=== PATIENT | female | born 1940 | race Caucasian/White ===

== ENCOUNTER 2018-01-05 10:32 | Emergency (ER) | payer MEDICARE ==
[2018-01-05] MEDS ORDERED: Sodium Chloride 0.9% 1000 ML 1,000 ML IV SCH (11:00)
--- NOTE | 2018-01-05 11:08 | ERPHSYRPT ---
- History of Present Illness Time Seen by Provider: 01/05/18 10:56 Source: patient Exam Limitations: no limitations Patient Subjective Stated Complaint: feeling funny and dizzy this morning. nausea with no vomiting. started at 0500 today. Triage Nursing Assessment: alert and oriented... ambulated to room. states had dizziness and nausea today. denies CP but states has had gas bubbles. abdomen soft + BSfeels like needs to have diarrhea stool but none. Physician History: 77-year-old white female arrives with complaint that she is feeling funny and dizzy today she feels like she is weak on her left side she has not had any movement problems nor is she having any speech problems. Symptoms began at 5: 00 this morning She states she woke up this way. Patient states she has occasional sharp fleeting twinges in her chest lasting seconds she is not short of breath she does state she had some nausea Past medical history includes high blood pressure Past surgical history is negative Timing/Duration: today Severity: moderate Associated Symptoms: nausea, chest pain (sharp fleeting chest pains, described as twinges, lasting seconds), weakness (feels like she is weak on her left side no movement problems), No vomiting, No abdominal pain, No shortness of breath, No heartburn, No diaphoresis, No cough, No chills, No fever, No headaches, No loss of appetite, No malaise, No rash, No syncope, No seizure Allergies/Adverse Reactions: No Known Drug Allergies Allergy (Verified 01/05/18 11:14) - Review of Systems Constitutional: Weakness, Other (feels dizzy), No Fever, No Chills, No Fatigue, No Lethargy, No Malaise, No Night Sweats Eyes: No Symptoms Ears, Nose, & Throat: No Symptoms Respiratory: No Cough, No Dyspnea Cardiac: Chest Pain (sharp fleeting chest pains described as twinges lasting seconds) Abdominal/Gastrointestinal: Nausea, No Abdominal Pain, No Vomiting, No Diarrhea , No Constipation, No Hematemesis, No Hematochezia, No Melena, No Dysphagia, No Appetite Changes Genitourinary Symptoms: No Dysuria Musculoskeletal: No Back Pain, No Neck Pain Skin: No Rash Neurological: Dizziness, Focal Weakness (feels weak on her left side), No Gait Changes, No Headache, No Irritability, No Paralysis, No Parasthesia, No Seizure , No Sensory Changes, No Speech Changes, No Tics, No Tremors, No Vertigo Psychological: No Symptoms Endocrine: No Symptoms All Other Systems: Reviewed and Negative - Past Medical History Pertinent Past Medical History: Yes Cardiac History: No Pertinent History, Hypertension - Past Surgical History Past Surgical History: No - Social History Smoking Status: Never smoker Exposure to second hand smoke: No Drug Use: none Patient Lives Alone: No - Female History Hx Now: No - Nursing Vital Signs Nursing Vital Signs: Initial Vital Signs Temperature 98.0 F 01/05/18 10:38 Pulse Rate 82 01/05/18 10:38 Respiratory Rate 18 01/05/18 10:38 Blood Pressure 145/87 01/05/18 10:38 O2 Sat by Pulse Oximetry 98 01/05/18 10:38 Pain Scale Pain Intensity 0 - Physical Exam General Appearance: no apparent distress, alert Eye Exam: PERRL/EOMI, eyes nml inspection Ears, Nose, Throat Exam: normal ENT inspection, TMs normal, pharynx normal, moist mucous membranes Neck Exam: normal inspection, non-tender, supple, full range of motion Respiratory Exam: normal breath sounds, lungs clear, No respiratory distress Cardiovascular Exam: regular rate/rhythm, normal heart sounds, normal peripheral pulses Gastrointestinal/Abdomen Exam: soft, normal bowel sounds, No tenderness, No mass Back Exam: normal inspection, normal range of motion, No CVA tenderness, No vertebral tenderness Extremity Exam: normal inspection, normal range of motion, pelvis stable Neurologic Exam: alert, oriented x 3, cooperative, 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[employer] (ex ) II-XII nml as tested, normal mood/affect, nml cerebellar function, nml station & gait, sensation nml, other (patient alert oriented x 3 cn 2-12 intact sweech normal no facial droop, normal finger to nose, medical territory manager equal 5/5 , no pronator drift, full rom all extremities, sensation intact to all extremities), No motor deficits, No facial droop, No slurred speech Skin Exam: normal color, warm, dry, No rash SpO2 Interpretation: normal (98%) SpO2: 98 Oxygen Delivery: Room Air - Course Nursing assessment & vital signs reviewed: Yes EKG Interpreted by Me: RATE (78 bpm), NORMAL AXIS, Other (EKG: Sinus rhythm, 78 bpm, normal axis, no acute ST or T wave changes noted) - Radiology Exams Chest X-ray Interpretation: Discussed w/ radiologist (chest x-ray: Impression: 1. Hyperinflation of lungs consistent with COPD 2. Mild old healed granulomatous disease 3. No acute cardiopulmonary process is seen for. Suspect minimal hiatal hernia. 5. Status post CABG surgical clips within the left upper quadrant of the abdomen.) - CT Exams Head CT Interpretation: Discussed w/radiologist (CT head without contrast: Impression : 1. No acute intracranial bleed or other acute intracranial process is seen. 2. Mild to moderate generalized cortical atrophy and chronic small vessel ischemic white matter changes are seen.) Ordered Tests: Active Orders 24 hr Category Date Time Status Accucheck STAT Care 01/05/18 11:00 Active Stoker Installation Mechanic STAT Care 01/05/18 11:02 Active EKG-ER Only STAT Care 01/05/18 11:02 Active IV Insertion STAT Care 01/05/18 11:00 Active Orthostatic Vital Signs STAT Care 01/05/18 11:00 Active CHEST 1 VIEW (PORTABLE) Stat Exams 01/05/18 11:00 Completed HEAD WITHOUT CONTRAST [CT] Stat Exams 01/05/18 11:00 Completed CBC W DIFF Stat Lab 01/05/18 11:25 Completed CMP Stat Lab 01/05/18 11:25 Completed CULTURE,URINE Stat Lab 01/05/18 11:23 Received ETHYL ALCOHOL Stat Lab 01/05/18 11:25 Completed Manual Differential NC Stat Lab 01/05/18 11:25 Completed TROPONIN Q3H Lab 01/05/18 11:25 Completed TROPONIN Q3H Lab 01/05/18 14:00 Ordered TROPONIN Q3H Lab 01/05/18 17:00 Ordered TROPONIN Q3H Lab 01/05/18 20:00 Ordered TROPONIN Q3H Lab 01/05/18 23:00 Ordered UA W/ MICROSCOPIC Stat Lab 01/05/18 11:23 Completed Medication Summary Generic Name Dose Route Start Last Admin Trade Name Freq PRN Reason Stop Dose Admin Sodium Chloride 1,000 mls @ 100 mls/hr 01/05/18 11:00 01/05/18 11:32 Sodium Chloride 0.9% 1000 Ml IV 02/04/18 10:59 100 mls/hr .Q10H HILARIA Administration Discontinued Medications Generic Name Dose Route Start Last Admin Trade Name Freq PRN Reason Stop Dose Admin Aspirin 162 mg 01/05/18 13:48 01/05/18 14:04 Baby Aspirin 81 Mg Chew PO 01/05/18 13:49 162 mg STAT ONE Administration Aspirin Confirm 01/05/18 14:02 Baby Aspirin 81 Mg Chew Administered 01/05/18 14:03 Dose 324 mg .ROUTE .STK-MED ONE Ceftriaxone Sodium/Dextrose 1 g in 50 mls @ 100 mls/hr 01/05/18 13:24 14:04 Rocephin 1 Gm-D5w 50 Ml Bag IV 01/05/18 13:53 100 ml/hr STAT STA 100 mls/hr Administration Ceftriaxone Sodium/Dextrose Confirm 01/05/18 14:02 Rocephin 1 Gm-D5w 50 Ml Bag Administered 01/05/18 14:03 Dose 1 g in 50 mls @ ud IV .STK-MED ONE Lab/Rad Data: Laboratory Result Diagrams 01/05/18 11:25 01/05/18 11:25 Laboratory Results 01/05/18 01/05/18 01/05/18 Range/Units 11:25 11:25 11:25 WBC 15.8 H (4.0-10.5) K/mm3 RBC 6.36 H* (4.1-5.4) M/mm3 Hgb 14.7 (12.0-16.0) gm/dl Hct 54.9 H (35-47) % MCV 86.3 (78-100) fl MCH 23.1 L (26-32) pg MCHC 26.8 L (32-36) g/dl RDW 24.9 H (11.5-14.0) % Plt Count 591 H (150-450) K/mm3 MPV 10.9 H (6-9.5) fl Absolute Granulocytes 13.5 H (1.4-6.9) Segmented Neutrophils 82 H (36.0-66.0) % Band Neutrophils 6 H (0.0-2.0) % Lymphocytes (Manual) 6 L (24-44) % Monocytes (Manual) 2 (0.0-12.0) % Eosinophils (Manual) 2 (0.00-3.0) % Basophils (Manual) 2 H (0.0-1.0) % Hypochromia 1+ Toxic Granulation 1+ Platelet Estimate NORMAL (NORMAL) RBC Morphology ABNORMAL Anisocytosis 1+ Sodium 142 (137-145) mmol/L Potassium 4.2 (3.5-5.1) mmol/L Chloride 103 (98-107) mmol/L Carbon Dioxide 30 (22-30) mmol/L Anion Gap 13.3 (5-15) MEQ/L BUN 14 (7-17) mg/dL Creatinine 0.66 (0.52-1.04) mg/dL Estimated GFR > 60.0 ML/MIN Glucose 110 H (74-106) mg/dL Calcium 9.5 (8.4-10.2) mg/dL Total Bilirubin 0.80 (0.2-1.3) mg/dL AST 21 (14-36) U/L ALT 9 (0-35) U/L Alkaline Phosphatase 85 (38-126) U/L Troponin I < 0.012 (0.000-0.034) ng/mL Serum Total Protein 6.9 (6.3-8.2) g/dL Albumin 4.0 (3.5-5.0) g/dL Ur Collection Type Urine Color (YELLOW) Urine Appearance (CLEAR) Urine pH (5-6) Ur Specific [place] (1.005-1.025) Urine Protein (Negative) Urine Ketones (NEGATIVE) Urine Blood (0-5) Kane/ul Urine Nitrite (NEGATIVE) Urine Bilirubin (NEGATIVE) Urine Urobilinogen (0-1) mg/dL Ur Leukocyte Esterase (NEGATIVE) Urine Microscopic WBC (0-5) /HPF Ur Epithelial Cells (FEW) /HPF Urine Bacteria (NEGATIVE) /HPF Urine Mucus (NEGATIVE) /HPF Urine Culture Reflexed (NO) Urine Glucose (NEGATIVE) mg/dL Ethyl Alcohol < 10 (0-10) mg/dL Specimen Received 01/05/18 Range/Units 11:23 WBC (4.0-10.5) K/mm3 RBC (4.1-5.4) M/mm3 Hgb (12.0-16.0) gm/dl Hct (35-47) % MCV (78-100) fl MCH (26-32) pg MCHC (32-36) g/dl RDW (11.5-14.0) % Plt Count (150-450) K/mm3 MPV (6-9.5) fl Absolute Granulocytes (1.4-6.9) Segmented Neutrophils (36.0-66.0) % Band Neutrophils (0.0-2.0) % Lymphocytes (Manual) (24-44) % Monocytes (Manual) (0.0-12.0) % Eosinophils (Manual) (0.00-3.0) % Basophils (Manual) (0.0-1.0) % Hypochromia Toxic Granulation Platelet Estimate (NORMAL) RBC Morphology Anisocytosis Sodium (137-145) mmol/L Potassium (3.5-5.1) mmol/L Chloride (98-107) mmol/L Carbon Dioxide (22-30) mmol/L Anion Gap (5-15) MEQ/L BUN (7-17) mg/dL Creatinine (0.52-1.04) mg/dL Estimated GFR ML/MIN Glucose (74-106) mg/dL Calcium (8.4-10.2) mg/dL Total Bilirubin (0.2-1.3) mg/dL AST (14-36) U/L ALT (0-35) U/L Alkaline Phosphatase (38-126) U/L Troponin I (0.000-0.034) ng/mL Serum Total Protein (6.3-8.2) g/dL Albumin (3.5-5.0) g/dL Ur Collection Type CLEAN CATCH Urine Color YELLOW (YELLOW) Urine Appearance CLOUDY (CLEAR) Urine pH 5.0 (5-6) Ur Specific [place] 1.020 (1.005-1.025) Urine Protein NEGATIVE (Negative) Urine Ketones NEGATIVE (NEGATIVE) Urine Blood NEGATIVE (0-5) Kane/ul Urine Nitrite POSITIVE (NEGATIVE) Urine Bilirubin NEGATIVE (NEGATIVE) Urine Urobilinogen NORMAL (0-1) mg/dL Ur Leukocyte Esterase 2+ (NEGATIVE) Urine Microscopic WBC 15-25 (0-5) /HPF Ur Epithelial Cells MODERATE (FEW) /HPF Urine Bacteria PACKED (NEGATIVE) /HPF Urine Mucus SLIGHT (NEGATIVE) /HPF Urine Culture Reflexed YES (NO) Urine Glucose NEGATIVE (NEGATIVE) mg/dL Ethyl Alcohol (0-10) mg/dL Specimen Received 01/06/20 1032 - Progress Progress: improved Progress Note: 01/05/18 13:22 77-year-old white female arrives with complaint that she was feeling dizzy felt funny she felt like she was weak on the left side when I talk to her about this she stated she just felt like she was stumbling to the left. On arrival patient neurologically normal walking without problems. Patient does have a urinary tract infection she states that she does get similar symptoms whenever she gets a UTI. Patient with 15-25 white cells per high-power field in her urine white blood cell count 15.8 hemoglobin 14.67 hematocrit 54.9 platelets were 591. Patient's chemistry essentially normal troponin within normal limits head CT no acute changes chest x-ray no acute disease process noted EKG sinus rhythm 78 bpm normal axis no acute ST or T wave changes vitals are stable. Will plan to give patient Rocephin IV. Patient is on Plavix consider aspirin 162 mg orally. Will discuss case with Dr. Cheung disposition clerk for Dr. Dukes. 01/05/18 13:42 I discussed the patient's case with Dr. cheung who was covering for Dr. Dukes. She related that the patient has a history of polycythemia vera was referred to Dr. Riggs but did not keep the appointment. She did want me to contact Dr. Rizzo and discussed this patient with him she did not want to admit the patient here in the hospital at this time as an oncologist would not be available. I contacted Dr. garcia, and discussed the case with him He felt that the patient did not warrant admission at this time. He did state that I could give the patient aspirin 162 mg orally now put her on aspirin 81 mg orally daily. Also will place patient on Bactrim DS one orally twice a day for 10 days. Will have patient drink plenty of fluids. He has requested that we have the nurses contact his office and set the patient up for an appointment next Wednesday in the [place] office. Patient really did not want to be admitted. Will go ahead and place the patient on aspirin Bactrim as noted above. Patient has been given Rocephin here in the emergency room. - Departure Time of Disposition: 13:45 Departure Disposition: Home Clinical Impression: Gait disturbance, Dizziness, Polycythemia UTI (urinary tract infection) Qualifiers: Urinary tract infection type: site unspecified Hematuria presence: without hematuria Qualified Code(s): N39.0 - Urinary tract infection, site not specified Condition: Fair Critical Care Time: No Referrals: BRAD DUKES [Primary Care Provider] - Additional Instructions: Return home. Plenty of fluids. Bactrim DS one orally twice a day for 10 days. Aspirin 81 mg orally daily. Follow-up with next Wednesday in [place] (january 12 at 2:30 pm ) [phone] Return for acute distress or for severe symptoms Prescriptions: Smz/Tmp Ds Tablet [Bactrim Ds Tablet] 1 tab PO BID #20 tablet
[2018-01-05 11:30] LABS: Appearance CLOUDY (CLEAR); Glucose NEGATIVE (NEGATIVE); Ketones NEGATIVE (NEGATIVE); Leukocyte Esterase 2+ (NEGATIVE); Nitrite POSITIVE (NEGATIVE); Protein,Urine Dip NEGATIVE (Negative); Urobilinogen NORMAL mg/dL (0-1)
[2018-01-05 11:31] LABS: Bilirubin NEGATIVE (NEGATIVE); Blood NEGATIVE Ery/ul (0-5)
[2018-01-05] MEDS ORDERED: Sodium Chloride 0.9% 1000 ML 1,000 ML ONE (11:31)
[2018-01-05 11:36] LABS: Mucus SLIGHT /HPF (NEGATIVE)
[2018-01-05 11:37] LABS: Bacteria PACKED /HPF (NEGATIVE); Epithelial Cells MODERATE /HPF (FEW); WBC 15-25 /HPF (0-5)
--- NOTE | 2018-01-05 11:38 | XRAY ---
Exam: AP upright portable chest film from 01/05/2018. Comparison: None. Indication: Dizziness, weak. Findings: The film was obtained in a lordotic projection. There is hyperinflation of the lungs consistent with COPD. The transverse heart size is normal. There is evidence of prior CABG with midline sternotomy. Mild atherosclerotic tortuosity and minimal calcification are seen within the aortic knob and descending thoracic aorta. I believe there is a minimal retrocardiac hiatal hernia seen near the left costovertebral angle. The ru and mediastinal structures appear unremarkable. A tiny calcified granuloma is seen overlying the peripheral left upper lung field as well as a few other small bibasilar calcified granulomas. Bilateral nipple shadows are seen. No infiltrates, vascular congestion, pneumothorax, or pleural fluid is seen. No acute osseous process is seen. Multiple surgical clips are seen within the left upper quadrant of the abdomen. Impression: 1. Hyperinflation of lungs consistent with COPD. 2. Mild old healed granulomatous disease. 3. No acute cardiopulmonary process is seen. 4. Suspect minimal hiatal hernia. 5. Status post CABG. I also note surgical clips within the left upper quadrant of the abdomen. Correlate with prior surgical history.
[2018-01-05 11:39] LABS: Hematocrit 54.9 % (35-47); Hemoglobin 14.7 gm/dl (12.0-16.0); Mean Cell Volume 86.3 fl (78-100); Mean Corpuscular Hemoglobin 23.1 pg (26-32); Mean Corpuscular Hgb Concent. 26.8 g/dl (32-36); Mean Platelet Volume 10.9 fl (6-9.5); Platelet Count 591 K/mm3 (150-450); Red Blood Count 6.36 M/mm3 (4.1-5.4); Red Cell Distribution Width 24.9 % (11.5-14.0); White Blood Count 15.8 K/mm3 (4.0-10.5)
[2018-01-05 11:42] LABS: Granulocyte Absolute (ANC) 13.5 (1.4-6.9)
[2018-01-05 11:55] LABS: BAND 6 % (0.0-2.0); Basophil 2 % (0.0-1.0); Eosinophil 2 % (0.00-3.0); Lymphocytes 6 % (24-44); Monocyte 2 % (0.0-12.0); Neutrophils 82 % (36.0-66.0); Total Cells Counted 100
[2018-01-05 11:56] LABS: ANISOCYTOSIS 1+; Hypochromia 1+; Platelet Estimate NORMAL (NORMAL); Toxic Granulation 1+
[2018-01-05 11:58] LABS: ALKALINE PHOSPHATASE 85 U/L (38-126); ANION GAP 13.3 MEQ/L (5-15); BLOOD UREA NITROGEN 14 mg/dL (7-17); CHLORIDE 103 mmol/L (98-107); Calcium 9.5 mg/dL (8.4-10.2); Carbon Dioxide 30 mmol/L (22-30); Creatinine 1 0.66 mg/dL (0.52-1.04); Glucose 110 mg/dL (74-106); Potassium 4.2 mmol/L (3.5-5.1); SGOT/AST 21 U/L (14-36); SGPT/ALT 9 U/L (0-35); SODIUM 142 mmol/L (137-145); Total Protein 6.9 g/dL (6.3-8.2)
[2018-01-05 11:59] LABS: ETHYL ALCOHOL < 10 mg/dL (0-10)
--- NOTE | 2018-01-05 13:02 | XRAY ---
Exam: CT of the head without IV contrast from 01/05/2018. CTDI: 68.65 Comparison: None. Indication: Weakness and dizziness Technique: Non-IV contrast axial images were obtained through the head. Reconstructed coronal and sagittal images were created and reviewed. Findings: The ventricles appear within normal limits of size for age. No focal mass effect or midline shift is seen. There is moderate prominence of the cortical sulci and sylvian fissures suggesting some atrophy. There is no evidence of acute intracranial bleed or abnormal extra-axial fluid collection. Mild patchy bilateral periventricular and subcortical white matter changes are seen which are nonspecific, but likely due to chronic microvascular disease. No prominent low attenuation region is seen to suggest an acute territorial infarct. The visualized paranasal sinuses are unremarkable. The mastoid air cells are clear without effusion. The calvarium of the skull appears intact without fracture. The globes of each eye and retro-orbital bulb are regions appear unremarkable. Mild vascular calcification is seen within the distal left vertebral artery. I also see some mild atherosclerotic vascular calcification within the cavernous portion of the distal internal carotid arteries. Impression: 1. No acute intracranial bleed or other acute intracranial process is seen. 2. Mild to moderate generalized cortical atrophy and chronic small vessel ischemic white matter changes are seen.
[2018-01-05] MEDS ORDERED: ROCEPHIN 1 Gm-D5w 50 ml Bag** 1 G/50 ML IVPB IV STA (13:24)
[2018-01-05] MEDS ORDERED: BABY ASPIRIN 81 MG CHEW PO ONE (13:48)
[2018-01-05] MEDS ORDERED: BABY ASPIRIN 81 MG CHEW ONE (14:02)
[2018-01-05] MEDS ORDERED: ROCEPHIN 1 Gm-D5w 50 ml Bag** 1 G/50 ML IVPB IV ONE (14:02)
[2018-01-05 14:51] VITALS: BP 130/81; PULSE 76; O2SAT 97
== END 2018-01-05 14:51 | disposition home or self-care (01) ==
LOC: ED 10:32
DX: R26.89 Other abnormalities of gait and mobility (principal); R42 Dizziness and giddiness; D75.1 Secondary polycythemia; N39.0 Urinary tract infection, site not specified; I10 Essential (primary) hypertension
CPT/HCPCS: 36000; 36415; 70450; 71045; 80053; 80307; 81000; 82962; 84484; 85025; 87077; 87086; 87186; 93005; 93041; 99284; J0696; A9270-GY; G0480